=== PATIENT | female | born 1990 | race African-American/Black ===

== ENCOUNTER 2020-02-29 00:19 | Inpatient (IN) | payer OTHER ==
[2020-02-29 00:53] LABS: APPEARANCE,URINE CLOUDY; BILIRUBIN,URINE NEGATIVE (NEGATIVE); COLOR,URINE YELLOW; GLUCOSE, URINE NEGATIVE (NEGATIVE); KETONES,URINE NEGATIVE (NEGATIVE); LEUKOCYTE ESTERASE,URINE MODERATE (NEGATIVE); NITRITE,URINE NEGATIVE (NEGATIVE); PROTEIN,URINE 30 mg/dL (NEGATIVE); URINE SPECIFIC GRAVITY 1.026; UROBILINOGEN,URINE NEGATIVE mg/dL (<2.0)
[2020-02-29 02:35] LABS: URINE AMPHETAMINES SCREEN NEGATIVE; URINE BARBITURATES SCREEN NEGATIVE; URINE BENZODIAZEPINES SCREEN NEGATIVE; URINE COCAINE SCREEN NEGATIVE; URINE MARIJUANA (THC) SCREEN NEGATIVE; URINE METHADONE SCREEN NEGATIVE; URINE PHENCYCLIDINE SCREEN NEGATIVE
[2020-02-29] MEDS: RINGERS SOLUTION,LACTATED 1,000 ML IV PRN ×2 (02:40→10:49)
[2020-02-29] MEDS ORDERED: PENICILLIN G POTASSIUM 5,000,000 UNIT in DEXTROSE 5%-WATER 100 ML IV ONE (02:42)
[2020-02-29] MEDS ORDERED: RINGERS SOLUTION,LACTATED 1,000 ML IV ONE (02:42)
[2020-02-29] MEDS ORDERED: OXYTOCIN/0.9 % SODIUM CHLORIDE 30 UNIT/500 ML RTUINJ ONE (02:46)
[2020-02-29] MEDS ORDERED: MISOPROSTOL 0.2 MG TABLET ONE (02:46)
[2020-02-29] MEDS ORDERED: PENICILLIN G-K 5 MILLION UNIT VIAL ONE ×2 (02:46→06:53)
[2020-02-29] MEDS ORDERED: OXYTOCIN 10 UNIT/ML VIAL ONE (02:46)
[2020-02-29] MEDS ORDERED: LIDOCAINE 1% INJ-PF (10 MG/ML) 30 ML SDV ONE (02:46)
[2020-02-29 03:22] LABS: ABSOLUTE LYMPHOCYTES (AUTO) 1.2 10^3/uL (0.5-4.7); ABSOLUTE MONOCYTES (AUTO) 0.4 10^3/uL (0.1-1.4); ABSOLUTE NEUT (AUTO) 5.2 10^3/uL (1.7-8.2); BASOPHILS % (AUTO) 0.5 % (0-2); EOSINOPHILS % (AUTO) 0.3 % (0-6); HEMATOCRIT 37.6 % (36.0-47.0); LYMPHOCYTES % (AUTO) 17.5 % (13-45); MEAN CORPUSCULAR HEMOGLOBIN 30.8 pg (27.0-33.4); MEAN CORPUSCULAR HGB CONC 34.5 g/dL (32.0-36.0); MEAN CORPUSCULAR VOLUME 89 fl (80-97); RED BLOOD COUNT 4.21 10^6/uL (3.72-5.28); RED CELL DISTRIBUTION WIDTH 12.9 % (11.5-14.0); SEGMENTED NEUTROPHILS % (AUTO) 75.7 % (42-78); TOTAL CELLS COUNTED % (AUTO) 100 %; WHITE BLOOD COUNT 6.9 10^3/uL (4.0-10.5)
[2020-02-29] MEDS ORDERED: EPHEDRINE SULFATE INJ 50 MG/1 ML AMPULE ONE ×2 (04:47→09:47)
[2020-02-29] MEDS ORDERED: ROPIVACAINE HCL 0.2% INJ/PF (2 MG/ML) 20 ML SDV ONE ×2 (04:48→09:49)
[2020-02-29] MEDS ORDERED: FENTANYL/BUPIVACAINE/NS/PF 0 MCG/0 ML RTUINJ EPI ONE (04:48)
[2020-02-29] MEDS: PENICILLIN G POTASSIUM 2,500,000 UNIT in DEXTROSE 5%-WATER 50 ML IV SCH ×4 (07:00→18:02)
--- NOTE | 2020-02-29 07:11 | Admission Physical ---
Datetime Report Generated by CPN: 02/29/2020 07:10 CURRENT ADMISSION Chief Complaint: Uterine Contractions Admit Impression : Term, Intrauterine ; Active Labor; Intact Membranes Admit Plan: Admit to Unit; Initiate Labor Protocol ALLERGIES Medication Allergies: No Medication Allergies: No Known Allergies (02/29/2020) Latex: Latex Allergies OBSTETRICAL HISTORY EDC: 03/03/2020 00:00 : 1 Para: 0 Gestational Diabetes: No Rh Sensitization: No Incompetent Cervix: No STUART: No Infertility: No ART Treatment: No Uterine Anomaly: No IUGR: No Hx Previous C/S: No Macrosomia: No Hx Loss/Stillborn: No PIH: No Hx : No Placenta Previa/Abruption: No Depression/PP Depression: Yes PTL/PROM: No Post Hemorrhage: No Current Procedures: Ultrasound; NST SEE RECORDS Alcohol: No Marijuana : No Cocaine: No Other Illicit Drugs: No Cigarettes: Former Smoker. [id number] Cigarette Comments: before MEDICAL HISTORY Diabetes: No Blood Transfusion: No Pulmonary Disease (Asthma, TB): No Breast Disease: No Hypertension: No Critical Care Nurse Specialist Surgery: No Heart Disease: No Hosp/Surgery: No Autoimmune Disorder: No Anesthetic Complications: No Kidney Disease: No Abnormal Pap Smear: No Neuro/Epilepsy: No Psychiatric Disorders: No Other Medical Diseases: No Hepatitis/Liver Disease: No Significant Family History: No Varicosities/Phlebitis: No Trauma/Violence : No Thyroid Dysfunction: No Medical History Comments: depression/anxiety on medications - discontinued for INFECTIOUS HISTORY Gonorrhea: No Genital Herpes: No Chlamydia: No Tuberculosis: No Syphilis: No Hepatitis: No HIV/AIDS Exposure: No Rash or Viral Illness: No HPV: No PHYSICAL EXAM General: Normal HEENT: Normal Neurologic: Normal Thyroid: Normal Heart: Normal Lungs: Normal Breast: Normal Back: Normal Abdomen: Normal Genitourinary Exam: Normal Extremities: Normal DTRs: Normal Pelvic Type: Adequate Vital Signs: Reviewed VAGINAL EXAM Dilatation: 5 Effacement: 90 Station: -1 Contraction Comments: regular MEMBRANES Membranes: Intact FETUS A EGA: 39.4 Monitoring: External US FHR- Baseline: 130 Variability: Moderate 6-25bpm Accelerations: 15X15 Decelerations: None FHR Category: Category I Presentation: Vertex Admit Comment: G1 at 39.4 weeks EGA in active labor -Admit to LDR -NPO and IVFs: LR at 125 cc/hr continuously after 1 liter bolus -CEFM and toco -GBS positive : PCN ordered -SHe is unsure if she wants epidural vs natural delivery. -Anticipate PLANS FOR LABOR AND DELIVERY Labor and Delivery: None Pain Management: Natural Feeding Preference: Breast Circumcision: Yes INFORMED CONSENT Informed Consent Obtained: Vaginal Delivery; Risks, Benefits and Alternatives Discussed Signature: with User ID: Capo : with User ID: Capo
[2020-02-29] MEDS ORDERED: FENTANYL CITRATE INJ/PF 100 MCG/2 ML AMPUL ONE (08:22)
[2020-02-29] MEDS ORDERED: FENTANYL CITRATE INJ/PF 100 MCG/2 ML AMPUL IV ONE (08:24)
[2020-02-29] MEDS ORDERED: ONDANSETRON HCL INJ/PF 4 MG/2 ML SDV IV ONE (08:24)
[2020-02-29] MEDS ORDERED: ONDANSETRON HCL INJ/PF 4 MG/2 ML SDV ONE (08:26)
[2020-02-29 09:31] LABS: HEMOGLOBIN 13.1 g/dL (12.0-15.5); MEAN CORPUSCULAR HEMOGLOBIN 30.6 pg (27.0-33.4); MEAN CORPUSCULAR HGB CONC 34.5 g/dL (32.0-36.0); MEAN CORPUSCULAR VOLUME 89 fl (80-97); RED BLOOD COUNT 4.29 10^6/uL (3.72-5.28); RED CELL DISTRIBUTION WIDTH 12.8 % (11.5-14.0); WHITE BLOOD COUNT 8.2 10^3/uL (4.0-10.5)
[2020-02-29] MEDS ORDERED: DIPHENHYDRAMINE HCL 50 MG/ML VIAL IV ONE (09:35)
[2020-02-29] MEDS ORDERED: DIPHENHYDRAMINE HCL 50 MG/ML VIAL ONE (09:36)
--- NOTE | 2020-02-29 09:46 | L&D Progress Notes ---
PROGRESS NOTES Datetime Report Generated by CPN: 02/29/2020 09:46 PROGRESS NOTE Impression: Normal Progression of Labor Impression Other: IUP@ 39w4d Procedures: Scalp Electrode; Sterile Vag Exam Plan: Continue Present Management Informed Consent Obtained: Vaginal Delivery; Induction of Labor; Risks, Benefits and Alternatives Discussed Vital Signs : Reviewed Vital Signs Comments: a couple elevated BP probably during contractions denies s/s of pre-e, continue to monitor Comment: S: breathing and crying with contractions, awaiting CBC results for epidural placement O:VSS, cervix as stated with slightly edematous cervix, Cat I tracing A: IUP @39w4d in labor, stable FSE placed per RN request due to inability to track contractions with position changes P: benadryl IV, epidural YEN, continue position changes. Reassess as clinically indicated, earlier prn, report given to Dr. Pak who is the OB operation manager today VAGINAL EXAM Dilatation: 7 Effacement: 90 Station: -1 Contractions: 1.5-4 LAST VAGINAL EXAM-NURSING Nursing Exam Dilitation: 9.0 Nursing Exam Effacement: 90 Nursing Exam Station: 0 MEMBRANES Membranes: Ruptured Amniotic Fluid Color: Bloody FETUS A Monitoring: External US; Internal Scalp Electrode Variability: Moderate 6-25bpm Decelerations: Early FHR Category: Category I : 39.4 Presentation: Vertex SIGNATURE SIGNATURE: [id number] Assignment: Ryan Pak MD Signature: with User ID: Jenna : with User ID: Jenna
[2020-02-29] MEDS ORDERED: FENTANYL/BUPIVACAINE/NS/PF 300 MCG/150 ML RTUINJ EPI ONE (09:48)
[2020-02-29] MEDS ORDERED: MEASLES,MUMPS&RUBELLA VACC/PF 0.5 ML VIAL SUBCUT PRN (15:46)
[2020-02-29] MEDS ORDERED: BENZOCAINE/MENTHOL AEROSOL SPRAY 56 ML TOP PRN (15:46)
[2020-02-29] MEDS ORDERED: NA PHOS,M-B/NA PHOS,DI-BA (ADULT) 133 ML ENEMA PR PRN (15:46)
[2020-02-29] MEDS ORDERED: ACETAMINOPHEN 650 MG SUPP.RECT PR PRN (15:46)
[2020-02-29] MEDS ORDERED: GLYCERIN/WITCH HAZEL LEAF 1 EACH MED..WIPE TP PRN (15:46)
[2020-02-29] MEDS ORDERED: DIPH/PERTUSS(ACELL)/TETANUS VAC/PF 0.5 ML SYR (>=10YO) IM PRN (15:46)
[2020-02-29] MEDS ORDERED: PROMETHAZINE HCL 25 MG SUPP.RECT PR PRN (15:46)
[2020-02-29] MEDS ORDERED: PROMETHAZINE HCL INJ 25 MG/1 ML VIAL IV PRN (15:46)
[2020-02-29] MEDS ORDERED: OXYTOCIN/0.9 % SODIUM CHLORIDE 30 UNIT/500 ML RTUINJ IV PRN (15:46)
[2020-02-29] MEDS ORDERED: DIPHENHYDRAMINE HCL 25 MG CAPSULE PO PRN (15:46)
[2020-02-29] MEDS ORDERED: PROMETHAZINE HCL 25 MG TABLET PO PRN (15:46)
[2020-02-29] MEDS ORDERED: PSEUDOEPHEDRINE HCL 30 MG TABLET PO PRN (15:46)
[2020-02-29] MEDS ORDERED: MAGNESIUM HYDROXIDE SUSP 30 ML UDCUP PO PRN (15:46)
[2020-02-29] MEDS ORDERED: DIBUCAINE 1% OINTMENT 28 GM TP PRN (15:46)
--- NOTE | 2020-02-29 16:22 | Warning Signs in Babies ---
VOD Warning Signs Datetime Report Generated by [facility]: 02/29/2020 16:22 VOD#[id number] -Warning Signs in Babies: Needs to be viewed. (02/29/2020 00:25:Ruma Thompson RN)
--- NOTE | 2020-02-29 16:24 | Delivery Summary ---
Del Sum A-C Datetime Report Generated by CPN: 02/29/2020 16:24 DELIVERY PERSONNEL DELIVERY PERSONNEL: [id number] Delivery Doctor:: Melissa Steward CNM Labor and Delivery Nurse:: Ruma Thompson RNwelder plasma arc Nurse:: Lynnette Knapp RN Nursery Nurse:: Brittney Ferrell RN Nursery Nurse:: Maricruz Hassan RN MATERNAL INFORMATION Delivery Anesthesia: Epidural Medications After Delivery: Pitocin 30 Units in 500ml NS/D5W Delivery QBL: 50 Maternal Complications: None Provider Comments: pt progressed to c/c/1 with urge to push, began pushing and after much coaching went on to deliver a viable baby boy in AMPARO presentation. Baby delivered thru nuchal x2 unable to reduced, strong cry and vigorous respiratory effort spontaneously at . Cord allowed to stop pulsating, clamped x2 and cut FOB (3vc noted). Placenta delivered spontaneously intact, bleding stable. Fundus firm at u. Vaginal and perineal inspection revealed abrasions as noted above. Bleeding stable, mother and baby bonding at this time. Nursery RN in room for delivery. LABOR SUMMARY EDC: 03/03/2020 00:00 No. Babies in Womb: 1 Attempted: No Labor Anesthesia: Epidural LABOR INFORMATION Reason for Induction: Not Applicable Onset of Labor: 02/29/2020 02:10 Complete Dilatation: 02/29/2020 13:25 Oxytocin: N/A Group B Beta Strep: positive Antibiotics # of Doses: 3 Antibiotics Time of Last Dose: 1205 Name of Antibiotic Given: PCN Steroids Given: None Reason Steroids Not Administered: Not Applicable Other Reason Not Administered: n/a MEMBRANES Membranes Rupture Method: Spontaneous Rupture of Membranes: 02/29/2020 05:00 Length of Rupture (hr): 10.18 Amniotic Fluid Color: Particulate Meconium Amniotic Fluid Amount: Large Amniotic Fluid Odor: None STAGES OF LABOR Stage 1 hr: 11 Stage 1 min: 15 Stage 2 hr: 1 Stage 2 min: 46 Stage 3 hr: 0 Stage 3 min: 3 Total Time in Labor hr: 13 Total Time in Labor min: 4 VAGINAL DELIVERY Episiotomy: None Laceration #1: None Laceration Extension #1: N/A Other Laceration: superficial right labial and vaginal-hemostatic not repair needed Laceration Repair: Not Applicable Sponge Count Correct: Yes Sharps Count Correct: N/A CSECTION DELIVERY Primary Indication: N/A Secondary Indication: N/A CSection Incidence: N/A Labor: N/A Elective: N/A CSection Incision: N/A BABY A INFORMATION Infant Delivery Date/Time: 02/29/2020 15:11 Method of Delivery: Vaginal Nurse Controlled Delivery: No Born in Route : No : N/A Forceps: N/A Vacuum Extraction: N/A Shoulder Dystocia : No PRESENTATION/POSITION BABY A Presentation: Cephalic Cephalic Presentation: Vertex Vertex Position: Left Occipital Anterior Breech Presentation: N/A PLACENTA INFORMATION BABY A Placenta Delivery Time : 02/29/2020 15:14 Placenta Method of Delivery: Spontaneous Placenta Status: Delivered SCORES BABY A Heart Rate 1 min: >100 bpm Resp Effort 1 min: Good Cry Reflex Irritability 1 min: Cough or Sneeze or Pulls Away Muscle Tone 1 min: Active Motion Color 1 min: Blue/Pale SCORE 1 MIN: 8 Heart Rate 5 min: >100 bpm Resp Effort 5 min: Good Cry Reflex Irritability 5 min: Cough or Sneeze or Pulls Away Muscle Tone 5 min: Active Motion Color 5 min: Body Tresckow, Extremities Blue SCORE 5 MIN: 9 Resuscitation Effort 10 min: Tactile Stimulation INFORMATION BABY A Gestational Age at Delivery: 39.4 Gestational Status: Full Term- 39- 40.6 Weeks Infant Outcome : Liveborn Condition : Stable Infant Sex: Male IDENTIFICATION BABY A Verification Date/Time: 02/29/2020 15:20 ID Band Number: [id number] Mother's Name Verified: Yes Infant RN Verifying : BERNARD Ash Additional Verifying Personnel: BERNARD Rick (Annotations: Data stored by Kirit on behalf of user) WEIGHT/LENGTH BABY A Birthweight (gm): 3768 Weight (lb): 8 Infant Weight (oz): 5 Infant Length (in): 21.00 Infant Length (cm): 53.34 CORD INFORMATION BABY A No. Cord Vessels: 3 Nuchal Cord : Around Neck x2, Tight Cord Blood Taken: Yes-For Eval (Mom's Blood Type - or O+) Infant Suction: Mouth; Nose ASSESSMENT BABY A Complications: Multiple Variable Decels; Meconium Physical Findings at Delivery: Caput Succedaneum Infant Respirations: Appears Normal Skin to Skin: Yes Wire Stockkeeper/ALS Called : No Care By: Infant care by nursery staff. See delivery summary. Transferred To: Remains with Mother BABY B INFORMATION : N/A SIGNATURES Assignment: Ryan Pka MD Signature: with User ID: Jenna : with User ID: Jenna
[2020-02-29] MEDS: IBUPROFEN 800 MG TABLET PO SCH (17:47)
[2020-02-29] MEDS: FERROUS SULFATE 325 MG TABLET PO SCH (17:47)
[2020-02-29] MEDS: DOCUSATE SODIUM 100 MG CAPSULE PO SCH (17:47)
[2020-03-01] MEDS: IBUPROFEN 800 MG TABLET PO SCH ×3 (01:07→17:50)
[2020-03-01] MEDS: FAMOTIDINE 20 MG TABLET PO SCH ×2 (01:23→11:58)
[2020-03-01 06:28] LABS: HEMATOCRIT 35.7 % (36.0-47.0); HEMOGLOBIN 12.1 g/dL (12.0-15.5); MEAN CORPUSCULAR HEMOGLOBIN 30.4 pg (27.0-33.4); MEAN CORPUSCULAR VOLUME 89 fl (80-97); RED CELL DISTRIBUTION WIDTH 13.3 % (11.5-14.0); WHITE BLOOD COUNT 13.9 10^3/uL (4.0-10.5)
[2020-03-01] MEDS: PRENATAL VITAMIN W DHA CAPSULE PO SCH (10:20)
[2020-03-01] MEDS: FERROUS SULFATE 325 MG TABLET PO SCH ×2 (10:20→17:49)
[2020-03-01] MEDS: DOCUSATE SODIUM 100 MG CAPSULE PO SCH ×2 (10:20→17:50)
[2020-03-01] MEDS: SENNOSIDES/DOCUSATE 8.6-50 MG 1 EACH TABLET PO SCH (10:20)
[2020-03-01] MEDS ORDERED: MEASLES,MUMPS&RUBELLA VACC/PF 0.5 ML VIAL SUBCUT PRN (10:30)
[2020-03-01] MEDS ORDERED: DIPH/PERTUSS(ACELL)/TETANUS VAC/PF 0.5 ML SYR (>=10YO) IM PRN (10:30)
[2020-03-01] MEDS ORDERED: PROMETHAZINE HCL INJ 25 MG/1 ML VIAL IV PRN (10:30)
--- NOTE | 2020-03-01 12:14 | PDOC PROGRESS REPORT ---
Subjective-OB Progress Note for:: 03/01/20 Subjective: Doing well, no c/o, , voiding Physical Exam (OB) Vital Signs: Temp Pulse Resp BP Pulse Ox 97.6 F 61 16 120/69 100 03/01/20 07:18 03/01/20 07:18 02/29/20 19:46 03/01/20 07:18 03/01/20 07:18 Intake & Output 02/29/20 03/01/20 03/02/20 06:59 06:59 06:59 Intake Total 1000 Output Total 650 Balance 350 Weight 78.2 kg - PIH/Pre-Eclampsia Headache: Absent Epigastric Pain: No Visual Changes: No - Lochia Lochia Amount: Scant < 10 ml Lochia Color: Rubra/Red - Abdomen Description: Soft Hernia Present: No Fundal Description: Firm, Midline Fundal Height: u/u - u/2 Objective-Diagnostic Laboratory: 03/01/20 06:14 03/01/20 06:14 WBC 13.9 H RBC 4.00 Hgb 12.1 Hct 35.7 L MCV 89 MCH 30.4 MCHC 34.0 RDW 13.3 Plt Count Assessment and Plan(PN) - Assessment and Plan (1) Labial abrasion, delivered, current hospitalization Is this a current diagnosis for this admission?: Yes (2) Vaginal delivery Is this a current diagnosis for this admission?: Yes - Time Spent with Patient Time with patient: Less than 15 minutes Medications reviewed and adjusted accordingly: Yes - Disposition Anticipated Discharge Disposition: Home, Self Care Anticipated Discharge Timeframe: within 24 hours
[2020-03-02] MEDS: IBUPROFEN 800 MG TABLET PO SCH ×2 (02:36→09:21)
[2020-03-02 08:43] VITALS: BP 120/61
[2020-03-02] MEDS: FERROUS SULFATE 325 MG TABLET PO SCH (09:21)
[2020-03-02] MEDS: DOCUSATE SODIUM 100 MG CAPSULE PO SCH (09:21)
[2020-03-02] MEDS: SENNOSIDES/DOCUSATE 8.6-50 MG 1 EACH TABLET PO SCH (09:21)
[2020-03-02] MEDS: PRENATAL VITAMIN W DHA CAPSULE PO SCH (09:22)
[2020-03-02] MEDS: FAMOTIDINE 20 MG TABLET PO SCH (10:41)
--- NOTE | 2020-03-02 11:13 | PDOC DISCHARGE SUMMARY ---
Impression - Admit/DC Date/PCP Admission Date/Primary Care Provider: 02/29/20 02:46 JONA LAWS MD Discharge Date: 03/02/20 - PP day #2, doing well, no complaints, , B negative, baby is O negative, Rubella immune - Additional Information Resuscitation Status: Full Code Discharge Diet: As Tolerated, Regular Discharge Activity: Activity As Tolerated, No Lifting Over 10 Pounds, Pelvic Rest Referrals: JONA LAWS MD [Primary Care Provider] - Prescriptions: Ibuprofen [Motrin 800 mg Tablet] 800 mg PO Q8A #60 tablet Home Medications: Prenat 115/Iron Fum/Folic/Dss [ 19 Tablet] 1 tab PO DAILY 02/29/20 Ibuprofen [Motrin 800 mg Tablet] 800 mg PO Q8A #60 tablet 03/02/20 HPI Reason(s) for Admission: Onset of Labor Procedures: Ultrasound Intrapartum Procedure(s): Spontaneous Vaginal Delivery Complication(s): Laceration-Labial - no repair needed Hospital Course Hospital Course: routine Results Laboratory Results: WBC 13.9 10^3/uL (4.0-10.5) H 03/01/20 06:14 RBC 4.00 10^6/uL (3.72-5.28) 03/01/20 06:14 Hgb 12.1 g/dL (12.0-15.5) 03/01/20 06:14 Hct 35.7 % (36.0-47.0) L 03/01/20 06:14 MCV 89 fl (80-97) 03/01/20 06:14 MCH 30.4 pg (27.0-33.4) 03/01/20 06:14 MCHC 34.0 g/dL (32.0-36.0) 03/01/20 06:14 RDW 13.3 % (11.5-14.0) 03/01/20 06:14 Plt Count 10^3/uL (150-450) 03/01/20 06:14 Lymph % (Auto) 17.5 % (13-45) 02/29/20 03:07 [place] % (Auto) 6.0 % (3-13) 02/29/20 03:07 Eos % (Auto) 0.3 % (0-6) 02/29/20 03:07 Baso % (Auto) 0.5 % (0-2) 02/29/20 03:07 Absolute Neuts (auto) 5.2 10^3/uL (1.7-8.2) 02/29/20 03:07 Absolute Lymphs (auto) 1.2 10^3/uL (0.5-4.7) 02/29/20 03:07 Absolute Monos (auto) 0.4 10^3/uL (0.1-1.4) 02/29/20 03:07 Absolute Eos (auto) 0.0 10^3/uL (0.0-0.6) 02/29/20 03:07 Absolute Basos (auto) 0.0 10^3/uL (0.0-0.2) 02/29/20 03:07 Seg Neutrophils % 75.7 % (42-78) 02/29/20 03:07 Urine Color YELLOW 02/29/20 00:40 Urine Appearance CLOUDY 02/29/20 00:40 Urine pH 5.0 (5.0-9.0) 02/29/20 00:40 Ur Specific [place] 1.026 02/29/20 00:40 Urine Protein 30 mg/dL (NEGATIVE) H 02/29/20 00:40 Urine Glucose (UA) NEGATIVE mg/dL (NEGATIVE) 02/29/20 00:40 Urine Ketones NEGATIVE mg/dL (NEGATIVE) 02/29/20 00:40 Urine Blood NEGATIVE (NEGATIVE) 02/29/20 00:40 Urine Nitrite NEGATIVE (NEGATIVE) 02/29/20 00:40 Urine Bilirubin NEGATIVE (NEGATIVE) 02/29/20 00:40 Urine Urobilinogen NEGATIVE mg/dL (<2.0) 02/29/20 00:40 Ur Leukocyte Esterase MODERATE (NEGATIVE) H 02/29/20 00:40 Urine Ascorbic Acid 40 (NEGATIVE) H 02/29/20 00:40 Urine Opiates Screen NEGATIVE 02/29/20 00:40 Urine Methadone Screen NEGATIVE 02/29/20 00:40 Ur Barbiturates Screen NEGATIVE 02/29/20 00:40 Ur Phencyclidine Scrn NEGATIVE 02/29/20 00:40 Ur Amphetamines Screen NEGATIVE 02/29/20 00:40 U Benzodiazepines Scrn NEGATIVE 02/29/20 00:40 Urine Cocaine Screen NEGATIVE 02/29/20 00:40 U Marijuana (THC) Screen NEGATIVE 02/29/20 00:40 RPR NONREACTIVE (NONREACTIVE) 02/29/20 03:07 Blood Type B NEGATIVE 02/29/20 03:07 Antibody Screen POSITIVE 02/29/20 03:07 Antibody Identification RHOGAM INDUCED ANTI-D 02/29/20 03:07 Plan Plan of Treatment: d/c home, f/up with [facility] in 4 wks for PP check Time Spent: Less than 30 Minutes
== END 2020-03-02 15:00 | disposition home or self-care (01) | DRG 807 ==
LOC: LC 00:19 → LR 02:46 → 2S 17:30
PROVIDERS: ADMIT Obstetrics & Gynecology; ATTEND Obstetrics & Gynecology
PROC: 10E0XZZ Delivery of Products of Conception, External Approach (ICD-10-PCS; principal; 2020-02-29)
PROC: 10H073Z Insertion of Monitoring Electrode into Products of Conception, Via Natural or Artificial Opening (ICD-10-PCS; 2020-02-29)
PROC: 3E0234Z Introduction of Serum, Toxoid and Vaccine into Muscle, Percutaneous Approach (ICD-10-PCS; 2020-03-02)
DX: O69.1XX0 Labor and delivery complicated by cord around neck, with compression, not applicable or unspecified (principal); Z37.0 Single live birth; O76 Abnormality in fetal heart rate and rhythm complicating labor and delivery; O70.0 First degree perineal laceration during delivery; O99.824 Streptococcus B carrier state complicating childbirth; Z3A.39 39 weeks gestation of pregnancy; O77.0 Labor and delivery complicated by meconium in amniotic fluid; Z23 Encounter for immunization; Z87.891 Personal history of nicotine dependence
CPT/HCPCS: 1967; 36415; 80307; 81005; 85025; 85027; 86592; 86850; 86870; 86900; 86901; 87521; 90715; 94760; C1758; J1200; J2405; J2540; J2590; J2795; J3010; J3490; J7060